=== PATIENT | male | born 1975 | race African-American/Black ===

== ENCOUNTER 2024-05-11 18:40 | Emergency (ER) | payer SELFPAY ==
[~2024-05-11] VITALS: Ht 170.2 cm; Wt 90.0 kg
[2024-05-11 19:45] VITALS: BP 131/83
[2024-05-11] MEDS ORDERED: DOXYCYCLINE HYCLATE 100 MG/CAP PO ONE (19:50)
[2024-05-11] MEDS ORDERED: oxyCODONE 5MG/ ACETAMINOPHEN 325MG TAB PO ONE (19:50)
[2024-05-11 20:01] VITALS: BP 119/75
[2024-05-11 20:31] VITALS: BP 129/83
[2024-05-11] MEDS ORDERED: DOXYCYCLINE100 MG PO (20:40)
[2024-05-11] MEDS ORDERED: PERCOCET 5/325M1 TAB PO (20:47)
[2024-05-11 21:00] VITALS: BP 139/98
[2024-05-11 21:20] VITALS: BP 139/98
== END 2024-05-11 21:20 | disposition home or self-care (01) | DRG 603 ==
LOC: ED 18:40
DX: L03.011 Cellulitis of right finger (principal)